=== PATIENT | male | born 1940 | race Hispanic/Latino ===

== ENCOUNTER 2017-08-22 10:02 | Day surgery (SDC) | payer MEDICARE, OTHER ==
[2017-08-16 12:56] VITALS: BMI 27.7
[2017-08-22] MEDS ORDERED: Propofol 10 mg/ml Inj (20 ML) ONE ×2 (11:45→12:27)
[2017-08-22] MEDS ORDERED: Sodium Chloride 0.9% 1,000 ML IV SCH (13:30)
[2017-08-22 14:11] VITALS: BP 123/58; PULSE 61; RESP 14; TEMP 97.5; O2SAT 99
== END 2017-08-22 14:53 | disposition home or self-care (01) ==
LOC: ENDO 10:02
PROVIDERS: ATTEND Internal Medicine
DX: D12.2 Benign neoplasm of ascending colon (principal); D12.0 Benign neoplasm of cecum; D12.4 Benign neoplasm of descending colon; D12.3 Benign neoplasm of transverse colon; K63.5 Polyp of colon; K64.8 Other hemorrhoids; Z98.0 Intestinal bypass and anastomosis status
CPT/HCPCS: 45380; 45381; 45385; 88305; J2704; J7040 ×2

== ENCOUNTER 2018-09-22 08:58 | Outpatient (CLI) | payer MEDICARE, OTHER | END 2018-09-30 08:54 | disposition home or self-care (01) | LOC: RAD 08:58 ==

== ENCOUNTER 2018-09-29 08:36 | Outpatient (CLI) | payer MEDICARE, OTHER | END 2018-09-29 08:37 | disposition home or self-care (01) | LOC: LAB 08:36 | DX: R93.89 Abnormal findings on diagnostic imaging of other specified body structures (principal) ==

== ENCOUNTER 2018-10-15 09:39 | Day surgery (SDC) | payer MEDICARE, OTHER ==
[2018-10-13 07:30] VITALS: BMI 28.1
[2018-10-15 10:13] LABS: BASO # 0.03 K/mm3 (0.0-2.0); BASO % 0.4 % (0.0-3.0); EOS # 0.3 (0.0-0.7); EOS % 3.7 % (1.5-5.0); HEMOGLOBIN 15.3 g/dL (14.0-18.0); LYMPH % 26.8 % (22.0-35.0); MEAN CELL VOLUME 86.4 fl (80.0-105.0); MEAN CORPUSCULAR HEMOGLOBIN 28.5 pg (25.0-35.0); MEAN PLATELET VOLUME 10.8 fl (7.0-11.0); MONO # 0.4 (0.1-0.6); RBC 5.36 10^6/uL (3.5-6.1); WHITE BLOOD COUNT 7.4 10^3/uL (4.5-11.0)
[2018-10-15 10:22] LABS: INR 1.04; PARTIAL THROMBOPLASTIN TIME 30.1 Seconds (26.9-38.3); PROTHROMBIN TIME 11.7 SECONDS (9.4-12.5)
[2018-10-15 10:23] LABS: BLOOD UREA NITROGEN 16 mg/dL (7-21); CALCIUM 9.6 mg/dL (8.4-10.5); GFR NON-AFRICAN AMERICAN > 60
[2018-10-15] MEDS ORDERED: Midazolam 2 MG/2 ML VIAL ONE (13:18)
[2018-10-15] MEDS ORDERED: Lidocaine 1% Inj (20ml) ONE (13:19)
[2018-10-15] MEDS ORDERED: Midazolam 2 MG/2 ML VIAL IVP ONE (14:00)
[2018-10-15] MEDS ORDERED: Oxycodone/Acetaminophen 5/325 mg Tab PO PRN (14:09)
[2018-10-15] MEDS ORDERED: Sodium Chloride 0.45% 1,000 ML IV SCH (14:15)
[2018-10-15 14:54] VITALS: O2SAT 99
[2018-10-15 15:23] VITALS: RESP 16; TEMP 98.3
--- NOTE | 2018-10-15 15:34 | RAD ---
Date of service: 10/15/2018 HISTORY: lt lung bx COMPARISON: No prior. FINDINGS: LUNGS: Left hilar lung mass. No evidence of post biopsy pneumothorax PLEURA: No significant pleural effusion identified, no pneumothorax apparent. CARDIOVASCULAR: No aortic atherosclerotic calcification present. Normal cardiac size. No pulmonary vascular congestion. OSSEOUS STRUCTURES: No significant abnormalities. VISUALIZED UPPER ABDOMEN: Normal. OTHER FINDINGS: None. IMPRESSION: Left hilar lung mass. No evidence of post biopsy pneumothorax
[2018-10-15 15:42] VITALS: BP 127/68; PULSE 78
--- NOTE | 2018-10-15 19:35 | CT ---
PROCEDURE: CT guided left lung biopsy. HISTORY: 6 cm left hilar mass. Smoker. Evaluate for malignancy PHYSICIAN(S): Lux Abernathy MD. TECHNIQUE: The relative risks and indications of the procedure were explained to the patient and consent obtained. The patient was placed supine on the CT scanner and preliminary images through the mid lungs obtained. Conscious sedation and monitoring were provided throughout the procedure by a nurse. There is an oblong 6 cm solid mass in the left hilum.. A left lateral approach was selected and the area prepped and draped in the usual sterile fashion. 1% Xylocaine was used to anesthetize the skin and soft tissues. A 19 gauge guiding needle was advanced into the 6 cm left hilar mass.. Its position was confirmed with CT. Using coaxial technique, multiple core biopsies were obtained. The postprocedure images show no evidence of large pneumothorax or significant hemorrhage.. IMPRESSION: 1. CT-guided left hilar lung biopsy as described above.
== END 2018-10-15 16:25 | disposition home or self-care (01) ==
LOC: SDS 09:39
PROVIDERS: ATTEND Radiology Vascular & Interventional Radiology
DX: C34.02 Malignant neoplasm of left main bronchus (principal); J43.9 Emphysema, unspecified; F17.200 Nicotine dependence, unspecified, uncomplicated; I25.10 Atherosclerotic heart disease of native coronary artery without angina pectoris

== ENCOUNTER 2018-10-31 05:48 | Outpatient (CLI) | payer MEDICARE, OTHER | END 2018-10-31 05:49 | disposition home or self-care (01) | LOC: PET-BROA 05:48 | DX: R91.8 Other nonspecific abnormal finding of lung field (principal) ==